=== PATIENT | male | born 1950 | race Caucasian/White ===

== ENCOUNTER 2018-03-06 10:01 | Outpatient (REF) | payer MEDICARE, SELFPAY ==
[2018-03-06 19:21] LABS: ALT 28 U/L (12-78); AST 15 U/L (15-37); Albumin 3.7 g/dL (3.4-5.0); Alkaline Phosphatase 68 U/L (46-116); Anion Gap 6.9 mmol/L (3-11); BUN 15 mg/dL (7-18); Bilirubin, Total 0.3 mg/dL (0.2-1.0); CO2 29.1 mmol/L (21.0-32.0); CREATININE 1.02 mg/dL (0.70-1.30); Calcium 8.7 mg/dL (8.5-10.1); Chloride 105 mmol/L (98-107); Cholesterol 260 mg/dL (50-200); Glucose 114 mg/dL (70-100); HDL Cholesterol 37 mg/dL (40-60); LDL CHOLESTEROL 182 mg/dL (<100); Potassium 4.4 mmol/L (3.5-5.1); Sodium 141 mmol/L (136-145); Total Protein 7.1 g/dL (6.4-8.2); Triglyceride 217 mg/dL (30-150)
[2018-03-06 19:26] LABS: Abs Immature Grans 0.04 k/cumm (0.0-0.09); Absolute Basophil Count 0.06 k/cumm (0.0-0.2); Absolute Eosinophil Count 0.17 k/cumm (0.0-0.7); Absolute Lymphocyte Count 1.51 k/cumm (1.2-3.4); Absolute Monocyte Count 0.73 k/cumm (0.11-0.7); Absolute Neutrophil Count 4.36 k/cumm (1.2-6.7); Basophils % 0.9; Eosinophils % 2.5; HCT 46.2 % (40.0-50.0); HGB 15.5 g/dL (13.5-17.5); Immature Grans % 0.6; Mean Corp. HGB Concentration 33.5 g/dL (32.0-36.0); Mean Corpuscular Hemoglobin 29.4 pg (27.0-33.0); Mean Corpuscular Volume 87.5 fL (80-95); Mean Platelet Volume 11.5 fL (8.0-11.0); Monocytes % 10.6; Neutrophils % 63.4; Platelet Count 227 x1000/uL (130-400); RBC 5.28 m/cumm (4.50-6.00); RBC Distribution Width 13.2 % (11.8-14.1); White Blood Cell Count 6.87 k/cumm (4.4-10.8)
[2018-03-06 20:15] LABS: COMMENT (LAB VIEW ONLY) 111.75 mg/dL
[2018-03-06 21:13] LABS: Hemoglobin A1C 5.7 % (4.5-6.2)
== END 2018-03-06 10:21 ==
LOC: NCHCN 10:01
PROVIDERS: PCP Physician Assistant; Visit Provider Nurse Practitioner Family
DX: I10 Essential (primary) hypertension (principal); E78.5 Hyperlipidemia, unspecified; R73.09 Other abnormal glucose
CPT/HCPCS: 80053; 80061; 83721; 82043; 82570; 83036; 85025

== ENCOUNTER 2018-12-31 12:51 | Outpatient (REF) | payer MEDICARE, SELFPAY ==
[2018-12-31 20:14] LABS: Anion Gap 7.8 mmol/L (3-11); BUN 19 mg/dL (7-18); CO2 30.2 mmol/L (21.0-32.0); CREATININE 0.82 mg/dL (0.70-1.30); Calcium 8.9 mg/dL (8.5-10.1); Calculated LDL 165 mg/dL; Chloride 105 mmol/L (98-107); Cholesterol 251 mg/dL (50-200); Glucose 95 mg/dL (70-100); HDL Cholesterol 40 mg/dL (40-60); Potassium 4.3 mmol/L (3.5-5.1); Sodium 143 mmol/L (136-145); Triglyceride 233 mg/dL (30-150)
== END 2018-12-31 13:11 ==
LOC: NCHCN 12:51
PROVIDERS: PCP Physician Assistant; Visit Provider Nurse Practitioner Family
DX: I10 Essential (primary) hypertension (principal); E78.5 Hyperlipidemia, unspecified
CPT/HCPCS: 80048; 80061; 83721

== ENCOUNTER 2020-02-21 11:44 | Outpatient (REF) | payer MEDICARE, SELFPAY ==
[2020-02-21 20:37] LABS: Anion Gap 10.7 mmol/L (3-11); BUN 18 mg/dL (7-18); CO2 27.3 mmol/L (21.0-32.0); CREATININE 0.97 mg/dL (0.70-1.30); Calcium 8.9 mg/dL (8.5-10.1); Calculated LDL 122 mg/dL (<100); Chloride 106 mmol/L (98-107); Cholesterol 200 mg/dL (<200); Glucose 119 mg/dL (74-106); HDL Cholesterol 33 mg/dL (40-60); Potassium 3.7 mmol/L (3.5-5.1); Sodium 144 mmol/L (136-145); Triglyceride 227 mg/dL (<150)
== END 2020-02-21 12:04 ==
LOC: NCHCN 11:44
PROVIDERS: PCP Physician Assistant; Visit Provider Nurse Practitioner Family
DX: I10 Essential (primary) hypertension (principal); E78.5 Hyperlipidemia, unspecified
CPT/HCPCS: 80048; 80061

== ENCOUNTER 2021-05-09 13:09 | Outpatient (REF) | payer MEDICARE, SELFPAY ==
[2021-05-09 21:31] LABS: HCT 43.1 % (40.0-50.0); HGB 14.5 g/dL (13.5-17.5); MCHC 33.6 % (32.0-36.0); MCV 89.2 fL (80-95); MPV 10.5 fL (8.0-11.0); Platelet Count 367 10^3/uL (130-400); RBC 4.83 10^6/uL (4.36-5.78); RDW 12.1 % (11.8-14.1); RDW-SD 39.5 fL; WBC 12.11 10^3/uL (4.4-10.8)
[2021-05-09 21:55] LABS: ALT 40 U/L (16-63); AST 17 U/L (15-37); Alkaline Phosphatase 104 U/L (46-116); Anion Gap 12.7 mmol/L (3-11); BUN 18 mg/dL (7-18); Bilirubin, Total 0.4 mg/dL (0.2-1.0); CO2 28.3 mmol/L (21.0-32.0); Calcium 9.4 mg/dL (8.5-10.1); Calculated LDL 153 mg/dL (<100); Chloride 101 mmol/L (98-107); Cholesterol 234 mg/dL (<200); Glucose 89 mg/dL (74-106); HDL Cholesterol 36 mg/dL (40-60); Potassium 3.7 mmol/L (3.5-5.1); Sodium 142 mmol/L (136-145); TSH 3.93 uIU/mL (0.36-3.74); Total Protein 7.5 g/dL (6.4-8.2); Triglyceride 225 mg/dL (<150)
== END 2021-05-09 13:10 | disposition home or self-care (01) ==
LOC: NCHCN 13:09
PROVIDERS: PCP Physician Assistant; Visit Provider Internal Medicine
DX: I10 Essential (primary) hypertension (principal); E78.5 Hyperlipidemia, unspecified
CPT/HCPCS: 80053; 80061; 85027; 84443

== ENCOUNTER 2021-06-11 11:39 | Outpatient (REF) | payer MEDICARE, SELFPAY ==
[2021-06-11 21:14] LABS: TSH 3.88 uIU/mL (0.36-3.74)
== END 2021-06-11 11:40 | disposition home or self-care (01) ==
LOC: NCHCN 11:39
PROVIDERS: PCP Physician Assistant; Visit Provider Nurse Practitioner Family
DX: R94.6 Abnormal results of thyroid function studies (principal)
CPT/HCPCS: 84443

== ENCOUNTER 2021-06-20 12:03 | Outpatient (REF) | payer MEDICARE, SELFPAY ==
[2021-06-20 20:36] LABS: FREE T4 0.88 ng/dL (0.76-1.46)
== END 2021-06-20 12:04 | disposition home or self-care (01) ==
LOC: NCHCN 12:03
PROVIDERS: PCP Physician Assistant; Visit Provider Nurse Practitioner Family
DX: R94.6 Abnormal results of thyroid function studies (principal)
CPT/HCPCS: 84439

== ENCOUNTER 2022-02-05 15:16 | Outpatient (REF) | payer MEDICARE, SELFPAY ==
[2022-02-05 20:04] LABS: Abs Immature Grans 0.08 10^3/uL (0.0-0.06); Absolute Lymphocyte Count 1.92 10^3/uL (1.2-3.4); Basophils % 0.6; Eosinophils % 0.7; HCT 45.7 % (40.0-50.0); HGB 15.7 g/dL (13.5-17.5); Immature Grans % 0.5; MCHC 34.4 % (32.0-36.0); MCV 85 fL (80-95); MPV 9.8 fL (8.0-11.0); Monocytes % 6.9; Neutrophils % 80.3; Platelet Count 470 10^3/uL (130-400); RBC 5.41 10^6/uL (4.36-5.78); RDW 12.2 % (11.8-14.1); RDW-SD 36.8 fL; WBC 17.44 10^3/uL (4.4-10.8)
[2022-02-05 20:19] LABS: Absolute Eosinophil Count 0.12 10^3/uL (0.0-0.7)
[2022-02-05 20:23] LABS: ALT 38 U/L (16-63); AST 20 U/L (15-37); Albumin 3.8 g/dL (3.4-5.0); Alkaline Phosphatase 115 U/L (46-116); Anion Gap 12.7 mmol/L (3-11); BUN 24 mg/dL (7-18); Bilirubin, Total 0.6 mg/dL (0.2-1.0); CO2 25.3 mmol/L (21.0-32.0); CREATININE 1.3 mg/dL (0.70-1.30); Chloride 100 mmol/L (98-107); Estimated GFR 54.73 (mL/min/1.73m2); Glucose 113 mg/dL (74-106); Sodium 138 mmol/L (136-145); TSH 2.53 uIU/mL (0.36-3.74); Total Protein 8.3 g/dL (6.4-8.2)
== END 2022-02-05 15:17 | disposition home or self-care (01) ==
LOC: NCHCN 15:16
PROVIDERS: PCP Physician Assistant; Visit Provider Nurse Practitioner Family
DX: I10 Essential (primary) hypertension (principal); R94.6 Abnormal results of thyroid function studies; R42 Dizziness and giddiness; R25.1 Tremor, unspecified
CPT/HCPCS: 80053; 84443; 85025

== ENCOUNTER 2022-11-08 14:52 | Outpatient (REF) | payer MEDICARE, SELFPAY ==
[2022-11-08 19:08] LABS: ALT 18 U/L (16-63); AST 17 U/L (15-37); Albumin 3.7 g/dL (3.4-5.0); Alkaline Phosphatase 115 U/L (46-116); Anion Gap 8.8 mmol/L (3-11); BUN 20 mg/dL (7-18); Bilirubin, Total 0.4 mg/dL (0.2-1.0); CO2 30.2 mmol/L (21.0-32.0); CREATININE 1.1 mg/dL (0.70-1.30); Calcium 9.1 mg/dL (8.5-10.1); Calculated LDL 123 mg/dL (<100); Chloride 104 mmol/L (98-107); Cholesterol 205 mg/dL (<200); Estimated GFR 72.22 (mL/min/1.73m2); Glucose 111 mg/dL (74-106); HDL Cholesterol 42 mg/dL (40-60); Sodium 143 mmol/L (136-145); Total Protein 7.7 g/dL (6.4-8.2); Triglyceride 202 mg/dL (<150)
== END 2022-11-08 14:53 | disposition home or self-care (01) ==
LOC: NCHCN 14:52
PROVIDERS: PCP Physician Assistant; Visit Provider Nurse Practitioner Family
DX: I10 Essential (primary) hypertension (principal); E78.5 Hyperlipidemia, unspecified
CPT/HCPCS: 80053; 80061

== ENCOUNTER 2023-08-04 11:24 | Outpatient (REF) | payer MEDICARE, SELFPAY ==
[2023-08-04 21:06] LABS: *AMPHETAMINES SCREEN URINE Negative (Negative); *BARBITURATES SCREEN URINE Negative (Negative); *BENZODIAZEPINES SCREEN URINE Negative (Negative); Cannabinoids THC Positive (Negative); Cocaine Screen,Urine Negative (Negative); METHADONE URINE SCREEN Negative (Negative); OPIATES URINE SCREEN Negative (Negative)
[2023-08-04 21:07] LABS: Tricyclic Antidepressants Negative (Negative)
== END 2023-08-04 11:25 | disposition home or self-care (01) ==
LOC: NCHCN 11:24
PROVIDERS: PCP Physician Assistant; Visit Provider Nurse Practitioner Family
DX: F41.8 Other specified anxiety disorders (principal); R82.5 Elevated urine levels of drugs, medicaments and biological substances; Z51.81 Encounter for therapeutic drug level monitoring
CPT/HCPCS: 80307

== ENCOUNTER 2023-11-12 10:11 | Outpatient (REF) | payer MEDICARE, SELFPAY ==
[2023-11-12 20:02] LABS: ALT 28 U/L (16-63); AST 16 U/L (15-37); Albumin 3.8 g/dL (3.4-5.0); Alkaline Phosphatase 110 U/L (46-116); Anion Gap 7.8 mmol/L (3-11); BUN 19 mg/dL (7-18); Bilirubin, Total 0.5 mg/dL (0.2-1.0); CO2 28.2 mmol/L (21.0-32.0); CREATININE 1.1 mg/dL (0.70-1.30); Calcium 8.9 mg/dL (8.5-10.1); Chloride 102 mmol/L (98-107); Estimated GFR 71.77 (mL/min/1.73m2); Glucose 112 mg/dL (74-106); Sodium 138 mmol/L (136-145); Total Protein 7.4 g/dL (6.4-8.2)
== END 2023-11-12 10:12 | disposition home or self-care (01) ==
LOC: NCHCN 10:11
PROVIDERS: PCP Physician Assistant; Visit Provider Nurse Practitioner Family
DX: Z68.30 Body mass index [BMI] 30.0-30.9, adult (principal); I10 Essential (primary) hypertension; E66.9 Obesity, unspecified
CPT/HCPCS: 80053; 83036

== ENCOUNTER 2024-11-16 14:58 | Outpatient (REF) | payer MEDICARE, SELFPAY ==
[2024-11-16 19:21] LABS: ALT 19 U/L (16-63); AST 18 U/L (15-37); Albumin 3.7 g/dL (3.4-5.0); Alkaline Phosphatase 139 U/L (46-116); Anion Gap 6.3 mmol/L (3-11); BUN 21 mg/dL (7-18); Bilirubin, Total 0.6 mg/dL (0.2-1.0); CO2 29.7 mmol/L (21.0-32.0); Calcium 9.2 mg/dL (8.5-10.1); Calculated LDL 145 mg/dL (<100); Chloride 103 mmol/L (98-107); Cholesterol 223 mg/dL (<200); Estimated GFR 79.97 (mL/min/1.73m2); Glucose 108 mg/dL (74-106); HDL Cholesterol 37 mg/dL (>or=40); Potassium 3.9 mmol/L (3.5-5.1); Sodium 139 mmol/L (136-145); Total Protein 7.5 g/dL (6.4-8.2); Triglyceride 206 mg/dL (<150)
== END 2024-11-16 14:59 | disposition home or self-care (01) ==
LOC: NCHCN 14:58
PROVIDERS: PCP Physician Assistant; Visit Provider Nurse Practitioner Family
DX: I10 Essential (primary) hypertension (principal); E78.5 Hyperlipidemia, unspecified
CPT/HCPCS: 80053; 80061